=== PATIENT | male | born 1980 | race Caucasian/White ===

== ENCOUNTER 2021-05-29 17:53 | Emergency (ER) | payer BC ==
[~2021-05-29] VITALS: Ht 182.9 cm; Wt 81.6 kg
[2021-05-29 17:59] VITALS: BP 150/82
[2021-05-29] MEDS ORDERED: METOCLOPRAMIDE 10 MG TAB PO ONE (19:30)
[2021-05-29] MEDS ORDERED: METO-485 PO (19:42)
[2021-05-29 19:59] VITALS: BP 128/79
--- NOTE | 2021-05-29 19:59 | NUR ---
Patient discharged with v/s stable. Written and verbal after care instructions given and explained. Patient verbalized understanding. Ambulatory with steady gait. All questions addressed prior to discharge. Advised to follow up with PMD.
== END 2021-05-29 20:00 | disposition home or self-care (01) ==
LOC: MED 17:53
DX: R06.6 Hiccough (principal); R03.0 Elevated blood-pressure reading, without diagnosis of hypertension; Z79.899 Other long term (current) drug therapy
CPT/HCPCS: 99283; J8597